=== PATIENT | female | born 1975 | race Caucasian/White ===

== ENCOUNTER 2018-11-05 08:42 | Day surgery (SDC) | payer OTHER ==
[~2018-11-05 08:42] MED LIST: PROPOFOL INJ 200 MG/20 ML VIAL IV ONE
[2018-11-05] MEDS ORDERED: ONDANSETRON HCL INJ/PF 4 MG/2 ML SDV ONE (09:21)
[2018-11-05 10:18] VITALS: BP 127/91
--- NOTE | 2018-11-05 13:18 | Operative Report ---
Operative Report DATE OF SURGERY: 11/05/18 Operative Report: The risks, benefits and alternatives of the procedure including the risks of bleeding, perforation requiring surgery have been explained to the patient in detail and informed consent is obtained. The patient is brought back to the endoscopy suite and placed in the left, lateral decubital position. Timeout was called. Propofol medication is administered. Rectal examination is done which did not reveal any masses, tears or fissures. An Olympus videoscope was introduced into the patient's rectum. The scope was then carefully advanced all the way to the cecum. The cecum was identified by the usual anatomical landmarks including the ileocecal valve as well as the appendiceal office. Photodocumentation is obtained. The scope was then sequentially pulled back via the rest segments of the colon including the ascending colon, hepatic flexure, transverse colon, splenic flexure, descending colon and finally into the rectosigmoid portions of the colon. Retroflexion maneuver is performed. The risks benefits and alternatives of the procedure explained to the patient in detail and informed consent is obtained.A GIF Olympus video scope was inserted into the patient's mouth and hypopharynx, the esophagus is identified intubated and insufflated, the scope was then advanced through the esophagus stomach and duodenum, retroflexion maneuver is done, the esophagus stomach and first and second portions of the duodenum examined. PREOPERATIVE DIAGNOSIS: Change of bowel habits, epigastric pain POSTOPERATIVE DIAGNOSIS: Right colon inflammation status post biopsy rule out collagenous colitis. Internal hemorrhoids. Gastritis status post biopsy rule out Helicobacter pylori OPERATION: Colonoscopy with biopsy. EGD with biopsy SURGEON: JACQUELYN HULL ANESTHESIA: LMAC TISSUE REMOVED OR ALTERED: As noted above. COMPLICATIONS: None. ESTIMATED BLOOD LOSS: None. INTRAOPERATIVE FINDINGS: As noted above. PROCEDURE: Patient tolerated the procedure well. No immediate postprocedure complications are noted. Patient discharged in good condition. Discharge date 11/05/2018. Discharge diet: Regular. Discharge activity: Regular. 2-3-week follow-up to discuss findings. Patient is instructed to call the office or proceed to the emergency room should there be any further problems or questions. I will wait on the pathology.
== END 2018-11-05 10:13 | disposition home or self-care (01) ==
LOC: END 08:42
PROVIDERS: ATTEND Internal Medicine Gastroenterology
DX: K29.50 Unspecified chronic gastritis without bleeding (principal); K52.9 Noninfective gastroenteritis and colitis, unspecified; K64.8 Other hemorrhoids; M06.9 Rheumatoid arthritis, unspecified; E07.9 Disorder of thyroid, unspecified; Z79.899 Other long term (current) drug therapy
CPT/HCPCS: 43239; 45380; 88342 ×2; 88305 ×2; J2405; J2704; 813

== ENCOUNTER 2018-12-03 08:01 | Inpatient (IN) | payer OTHER ==
[2018-11-30 12:23] LABS: APPEARANCE,URINE SLIGHTLY-CLOUDY; BILIRUBIN,URINE NEGATIVE (NEGATIVE); COLOR,URINE YELLOW; GLUCOSE, URINE NEGATIVE (NEGATIVE); KETONES,URINE NEGATIVE (NEGATIVE); LEUKOCYTE ESTERASE,URINE NEGATIVE (NEGATIVE); NITRITE,URINE NEGATIVE (NEGATIVE); PROTEIN,URINE NEGATIVE (NEGATIVE); URINE SPECIFIC GRAVITY 1.021; UROBILINOGEN,URINE NEGATIVE mg/dL (<2.0)
--- NOTE | 2018-11-30 12:26 | EKG REPORT ---
SEVERITY:- DEFECTIVE ECG - SINUS RHYTHM : Confirmed by: Robinson Moreno MD 30-Nov-2018 12:25:36
--- NOTE | 2018-11-30 12:35 | RADIOLOGY REPORT (SQ) ---
EXAM DESCRIPTION: CHEST PA/LATERAL COMPLETED DATE/TIME: 11/30/2018 12:28 pm REASON FOR STUDY: PRE-OP COMPARISON: None. EXAM PARAMETERS: NUMBER OF VIEWS: two views TECHNIQUE: Digital Frontal and Lateral radiographic views of the chest acquired. RADIATION DOSE: NA LIMITATIONS: none FINDINGS: LUNGS AND PLEURA: No opacities, masses or pneumothorax. No pleural effusion. MEDIASTINUM AND HILAR STRUCTURES: No masses or contour abnormalities. HEART AND VASCULAR STRUCTURES: Heart normal size. No evidence for failure. BONES: No acute findings. HARDWARE: None in the chest. OTHER: No other significant finding. IMPRESSION: NO SIGNIFICANT RADIOGRAPHIC FINDING IN THE CHEST. TECHNICAL DOCUMENTATION: JOB ID: [id number] [employer]- All Rights Reserved Reading location - IP/workstation name: [email or web address]
[2018-11-30 13:29] LABS: HEMATOCRIT 39.7 % (36.0-47.0); HEMOGLOBIN 13.8 g/dL (12.0-15.5); MEAN CORPUSCULAR HEMOGLOBIN 30.2 pg (27.0-33.4); MEAN CORPUSCULAR HGB CONC 34.7 g/dL (32.0-36.0); MEAN CORPUSCULAR VOLUME 87 fl (80-97); PLATELET COUNT 357 10^3/uL (150-450); RED BLOOD COUNT 4.57 10^6/uL (3.72-5.28); RED CELL DISTRIBUTION WIDTH 12.8 % (11.5-14.0); WHITE BLOOD COUNT 9.4 10^3/uL (4.0-10.5)
[2018-11-30 13:48] LABS: ANION GAP 10 (5-19); BLOOD UREA NITROGEN 12 mg/dL (7-20); CALCIUM 8.8 mg/dL (8.4-10.2); CARBON DIOXIDE 28 mmol/L (22-30); CHLORIDE 106 mmol/L (98-107); GLUCOSE 84 mg/dL (75-110); POTASSIUM 4.1 mmol/L (3.6-5.0); SODIUM 143.8 mmol/L (137-145)
[~2018-12-03 08:01] MED LIST changes: +BUPIVACAINE HCL 0.5%-EPI 1:200000 INJ/PF 30 ML VIAL ONE; +CEFAZOLIN SODIUM 2 GM in DEXTROSE 5%-WATER 100 ML IV PRN; -PROPOFOL INJ 200 MG/20 ML VIAL IV ONE
[2018-12-03] MEDS ORDERED: CEFAZOLIN 2 GM/D5W RTU 2 GM/50 ML RTUPB IV ONE (08:07)
[2018-12-03] MEDS ORDERED: SUCCINYLCHOLINE CHLORIDE INJ 200 MG/10 ML VIAL ONE (09:13)
[2018-12-03] MEDS ORDERED: DEXAMETHASONE SOD PHOSPHATE INJ 4 MG/1 ML VIAL ONE (09:13)
[2018-12-03] MEDS ORDERED: PHENYLEPHRINE HCL INJ/PF 10 MG/1 ML SDV ONE (09:13)
[2018-12-03] MEDS ORDERED: LIDOCAINE 2% INJ-PF (20 MG/ML) 10 ML AMPUL ONE (10:15)
[2018-12-03] MEDS ORDERED: MIDAZOLAM 2 MG/2 ML INJ ONE (10:16)
[2018-12-03] MEDS ORDERED: ACETAMINOPHEN 1,000 MG/100 ML RTUPB IV ONE (10:16)
[2018-12-03] MEDS ORDERED: ONDANSETRON HCL INJ/PF 4 MG/2 ML SDV ONE (10:16)
[2018-12-03] MEDS ORDERED: TRANEXAMIC ACID INJ/PF 1,000 MG/10 ML SDV IV ONE (10:16)
[2018-12-03] MEDS ORDERED: FENTANYL CITRATE INJ/PF 100 MCG/2 ML AMPUL ONE ×3 (10:16→12:28)
[2018-12-03] MEDS ORDERED: PROPOFOL INJ 200 MG/20 ML VIAL IV ONE (10:16)
[2018-12-03] MEDS ORDERED: EPHEDRINE SULFATE INJ 50 MG/1 ML AMPULE ONE (10:17)
[2018-12-03] MEDS ORDERED: PROMETHAZINE HCL INJ 25 MG/1 ML VIAL ONE (10:31)
[2018-12-03] MEDS ORDERED: HYDROMORPHONE HCL INJ/PF 2 MG/ML AMPULE ONE (10:32)
[2018-12-03] MEDS ORDERED: PROMETHAZINE HCL INJ 25 MG/1 ML VIAL IV PRN ×2 (10:47)
[2018-12-03] MEDS ORDERED: FENTANYL CITRATE INJ/PF 100 MCG/2 ML AMPUL IV PRN ×3 (10:47)
[2018-12-03] MEDS ORDERED: DIPHENHYDRAMINE HCL 50 MG/ML VIAL IV PRN (10:47)
[2018-12-03] MEDS ORDERED: MEPERIDINE HCL/PF INJ 25 MG/1 ML DISP.SYRIN IV PRN (10:47)
--- NOTE | 2018-12-03 11:46 | Operative Report ---
Operative Report DATE OF SURGERY: 12/03/18 PREOPERATIVE DIAGNOSIS: Left proximal humeral chondrosarcoma OPERATION: Intralesional resection left proximal humeral chondrosarcoma SURGEON: GHISLAINE FELIX ANESTHESIA: GA TISSUE REMOVED OR ALTERED: Tissue to pathology. Discussed with Dr. Tovar margins are not appropriate but tumor grade is important ESTIMATED BLOOD LOSS: 100 PROCEDURE: With the patient in a beachchair position on the operating table the left upper extremity and forequarter are prepped and draped in a sterile fashion. A delta level l pectoral approach to the shoulder is utilized. The shoulder is visualized. The subscapularis was taken down using an osteotomy through the lesser tuberosity and is retracted medially. The pectoralis is tagged and released from its insertion. The humerus was then externally rotated to bring the metaphyseal lesion into the operative field. It is entered using a 10 blade. The contents evacuated with a curette. The overhanging ridges are removed using a rondure. The wound is irrigated. The base of the tumor is then debrided using a TPS bur. The bed is then burned using electrocautery. The TPS is again used to remove all the charred cancellus bone. The wound is irrigated. Polymethylmethacrylate with tobramycin was mixed and used to fill the bone defect. The subscapularis tendon is repaired using interr upted 2-0 FiberWire suture. The pectoralis is repaired using 2-0 FiberWire suture. The wound is again irrigated and closed using Vicryl followed by nylon. A sterile compressive dressing and shoulder immobilizer applied and the patient's return to the PACU in satisfactory condition..
[2018-12-03] MEDS ORDERED: MORPHINE SULFATE 10 MG/ML INJ ONE (12:28)
[2018-12-03] MEDS: MORPHINE SULFATE 10 MG/ML INJ IV PRN ×4 (12:35→21:10)
[2018-12-03] MEDS ORDERED: RINGERS SOLUTION,LACTATED 1,000 ML IV PRN (12:57)
[2018-12-03] MEDS ORDERED: ONDANSETRON 4 MG TAB.RAPDIS SL PRN (13:00)
[2018-12-03] MEDS: OXYCODONE HCL IR 5 MG TABLET PO PRN ×2 (15:22→22:58)
[2018-12-03] MEDS: CEFAZOLIN SODIUM 2 GM in DEXTROSE 5%-WATER 100 ML IV SCH (17:03)
--- NOTE | 2018-12-03 18:23 | EKG REPORT ---
SEVERITY:- NORMAL ECG - SINUS RHYTHM : Confirmed by: Jenniffer Jessica 03-Dec-2018 18:22:21
[2018-12-04] MEDS: CEFAZOLIN SODIUM 2 GM in DEXTROSE 5%-WATER 100 ML IV SCH (02:45)
[2018-12-04] MEDS: MORPHINE SULFATE 10 MG/ML INJ IV PRN ×3 (02:46→11:55)
[2018-12-04] MEDS: OXYCODONE HCL IR 5 MG TABLET PO PRN ×4 (05:45→18:38)
[2018-12-04 06:44] LABS: HEMATOCRIT 35.3 % (36.0-47.0); MEAN CORPUSCULAR HEMOGLOBIN 29.9 pg (27.0-33.4); MEAN CORPUSCULAR VOLUME 88 fl (80-97); PLATELET COUNT 300 10^3/uL (150-450); RED BLOOD COUNT 4.01 10^6/uL (3.72-5.28); RED CELL DISTRIBUTION WIDTH 12.7 % (11.5-14.0); WHITE BLOOD COUNT 20.9 10^3/uL (4.0-10.5)
--- NOTE | 2018-12-04 07:05 | PDOC PROGRESS REPORT ---
Subjective Progress Note for:: 12/04/18 Reason For Visit: TUMOR REMOVAL FROM L HUMERUS BONE 43-year-old white female postop day 1 status post resection of a left proximal humeral chondrosarcoma. Patient complaining of pain overnight. Physical Exam Vital Signs: Temp Pulse Resp BP Pulse Ox 36.8 C 109 H 17 116/67 94 12/03/18 23:50 12/03/18 23:50 12/03/18 20:00 12/03/18 23:50 12/03/18 23:50 Intake & Output 12/03/18 12/04/18 12/05/18 06:59 06:59 06:59 Intake Total 2344 Output Total 400 Balance 1944 Weight 105.1 kg Physical Exam: Overweight middle-aged white female lying comfortably in bed. She is complaining of pain. General appearance: PRESENT: no acute distress, mild distress Head exam: PRESENT: normocephalic Respiratory exam: PRESENT: unlabored Cardiovascular exam: PRESENT: RRR Vascular exam: PRESENT: normal capillary refill GI/Abdominal exam: PRESENT: soft Rectal exam: PRESENT: deferred Extremities exam: PRESENT: other - Left shoulder dressing clean dry and intact. There is brisk capillary refill to each of the digits. Radial, ulnar, and median nerve function are intact. Neurological exam: PRESENT: alert, awake, oriented to person, oriented to place, oriented to time, oriented to situation. ABSENT: motor sensory deficit Psychiatric exam: PRESENT: appropriate affect, normal mood. ABSENT: homicidal ideation, suicidal ideation Skin exam: PRESENT: dry, intact, warm. ABSENT: cyanosis, rash Results Impressions: Chest X-Ray 11/30/18 12:20 IMPRESSION: NO SIGNIFICANT RADIOGRAPHIC FINDING IN THE CHEST. Status: Imported from PACS Assessment & Plan - Diagnosis (1) Chondrosarcoma left humerus Is this a current diagnosis for this admission?: Yes Plan: Pain medication has been increased. Shoulder sling has been ordered. Likewise ice to the shoulder on a as needed basis. Anticipate discharge home tomorrow with home health services. - Time Time Spent with patient: 15-24 minutes Anticipated discharge: Home with Homehealth Within: within 24 hours
[2018-12-04 07:09] LABS: ANION GAP 10 (5-19); BLOOD UREA NITROGEN 9 mg/dL (7-20); CALCIUM 9.1 mg/dL (8.4-10.2); CARBON DIOXIDE 25 mmol/L (22-30); CHLORIDE 106 mmol/L (98-107); GLUCOSE 131 mg/dL (75-110); POTASSIUM 4.2 mmol/L (3.6-5.0); SODIUM 141.2 mmol/L (137-145)
[2018-12-04] MEDS: OXYCODONE HCL SR 10 MG TABLET PO SCH ×2 (09:04→22:59)
[2018-12-05] MEDS: OXYCODONE HCL IR 5 MG TABLET PO PRN ×2 (00:15→04:30)
--- NOTE | 2018-12-05 07:16 | PDOC DISCHARGE SUMMARY ---
General - Admit/Disc Date/PCP Admission Date/Primary Care Provider: 12/03/18 08:01 ARIEL CASTRO, Discharge Date: 12/05/18 - Discharge Diagnosis (1) Chondrosarcoma left humerus Is this a current diagnosis for this admission?: Yes - Additional Information Resuscitation Status: Full Code Home Medications: Cholecalciferol (Vitamin D3) [Vitamin D3] 5,000 unit PO DAILY 12/03/18 Cyanocobalamin (Vitamin B-12) [Vitamin B-12 Inj 1000 Mcg/1 ml Vial] 1,000 mcg IM [id number] 12/03/18 Levothyroxine Sodium [Synthroid 0.025 mg Tablet] 0.25 mg PO Q6AM 12/03/18 Multivitamin [Tab-A-Basil (Multiple Vitamin) Tablet] 1 tab PO DAILY 12/03/18 Pantoprazole Sodium [Protonix] 40 mg PO DAILY 12/03/18 History of Present Illness History of Present Illness: KEYANNA FROST is a 43 year old female Patient is a 43-year-old white female who presented with greater than 1 year prodrome of left shoulder pain which was initially treated as a musculoskeletal injury. Ultimately an MRI scan was obtained and a proximal humeral metaphyseal lesion was identified. The nature of the lesion by imaging study suggested an active process of a cartilaginous neoplasm consistent with a low-grade chondrosarcoma. Hospital Course Hospital Course: The patient is admitted through the operating room where she underwent an intralesional resection of the left proximal humeral chondrosarcoma. She tolerated the procedure without complication was returned to floor in satisfactory condition. Pain control was initially problematic but the patient's oral analgesics were adjusted such that she is comfortable. Left shoulder wound remains clean dry and intact. Distal neurovascular examination to the left hand is intact. Physical Exam Vital Signs: Temp Pulse Resp BP Pulse Ox 36.8 C 97 16 127/75 H 95 12/04/18 23:19 12/04/18 23:19 12/04/18 23:19 12/04/18 23:19 12/04/18 23:19 Intake & Output 12/04/18 12/05/18 12/06/18 06:59 06:59 06:59 Intake Total 2344 2300 Output Total 400 900 Balance 1944 1400 Weight 105.1 kg 105.1 kg Physical Exam: Middle-aged white female lying in bed in minor distress. General appearance: PRESENT: no acute distress, mild distress, well-developed, well-nourished Head exam: PRESENT: normocephalic Respiratory exam: PRESENT: unlabored Cardiovascular exam: PRESENT: RRR Vascular exam: PRESENT: normal capillary refill GI/Abdominal exam: PRESENT: soft Rectal exam: PRESENT: deferred Extremities exam: PRESENT: other - Left upper extremity immobilized in a shoulder sling. Left shoulder dressing remains clean dry and intact. Neurovascular examination to the left hand is intact. Neurological exam: PRESENT: alert, awake, oriented to person, oriented to place, oriented to time, oriented to situation. ABSENT: motor sensory deficit Psychiatric exam: PRESENT: appropriate affect, normal mood. ABSENT: homicidal ideation, suicidal ideation Skin exam: PRESENT: dry, intact, warm. ABSENT: cyanosis, rash Results Laboratory Results: 12/04/18 05:50 12/04/18 05:50 12/04/18 12/04/18 05:50 05:50 WBC 20.9 H RBC 4.01 Hgb 12.0 Hct 35.3 L MCV 88 MCH 29.9 MCHC 34.0 RDW 12.7 Plt Count 300 Sodium 141.2 Potassium 4.2 Chloride 106 Carbon Dioxide 25 Anion Gap 10 BUN 9 Creatinine 0.72 Est GFR ( Amer) > 60 Est GFR (Non-Af Amer) > 60 Glucose 131 H Calcium 9.1 Impressions: Chest X-Ray 11/30/18 12:20 IMPRESSION: NO SIGNIFICANT RADIOGRAPHIC FINDING IN THE CHEST. Status: Imported from PACS Qualifiers - * PATIENT BEING DISCHARGED WITH ANY OF THE FOLLOWING DIAGNOSIS: No VTE patient discharged on overlapping Therapy?: No Reason(s) for not prescribing Overlap Therapy:: Not indicated Plan Discharge Plan: Patient to be discharged home on oral analgesics. Follow-up with Dr. Bright and [facility] for surgery in 2 weeks for staple removal. Time Spent: Less than 30 Minutes
[2018-12-05 08:30] VITALS: BP 112/88
[2018-12-05] MEDS: OXYCODONE HCL SR 10 MG TABLET PO SCH (09:06)
== END 2018-12-05 10:25 | disposition home health service (06) | DRG 479 ==
LOC: INOR 08:01 → EDSTATUS 11:15 → 4W 14:02
PROVIDERS: ADMIT Orthopaedic Surgery; ATTEND Orthopaedic Surgery
PROC: 0PUD0JZ Supplement Left Humeral Head with Synthetic Substitute, Open Approach (ICD-10-PCS; 2018-12-03)
PROC: 0PBD0ZX Excision of Left Humeral Head, Open Approach, Diagnostic (ICD-10-PCS; principal; 2018-12-03 10:00)
PROC: 3E02340 Introduction of Influenza Vaccine into Muscle, Percutaneous Approach (ICD-10-PCS; 2018-12-05)
DX: C40.02 Malignant neoplasm of scapula and long bones of left upper limb (principal); E03.9 Hypothyroidism, unspecified; K21.9 Gastro-esophageal reflux disease without esophagitis; M06.9 Rheumatoid arthritis, unspecified; Z23 Encounter for immunization
CPT/HCPCS: 36415; 400; 71046; 80048; 81001; 85027; 88305; 88311; 90471; 90686; 93005; 93010; C1713; G0008; J0131; J0330; J0690; J1100; J1170; J2250; J2270; J2370; J2405; J2550; J2704; J3010; J3490; J7120

== ENCOUNTER → 2020-06-12 | Outpatient (CLI) | payer OTHER | LOC: OD 08:12 | PROVIDERS: ATTEND Otolaryngology | DX: J30.9 Allergic rhinitis, unspecified (principal) | CPT/HCPCS: 36415; 82785; 86003 ==

== ENCOUNTER → 2020-07-02 | Outpatient (CLI) | payer OTHER ==
--- NOTE | 2020-07-02 14:23 | RADIOLOGY REPORT (SQ) ---
EXAM DESCRIPTION: CT CHEST WITH IMAGES COMPLETED DATE/TIME: 07/02/2020 1:53 pm REASON FOR STUDY: R91.8 OTHER NONSPECIFIC ABNORMAL FINDING OF LUNG FIELD R91.8 OTHER NONSPECIFIC AB NORMAL FINDING OF LUNG FIELD COMPARISON: None. TECHNIQUE: CT scan of the chest performed using helical scanning technique with dynamic intravenous contrast injection. Images reviewed with lung, soft tissue and bone windows. Reconstructed coronal and sagittal MPR and MIP images reviewed. All images stored on PACS. All CT scanners at this facility use dose modulation, iterative reconstruction, and/or weight based d osing when appropriate to reduce radiation dose to as low as reasonably achievable (ALARA). [facility]: Dose Right [facility]: CareDose [facility]: Dose Right [facility]: Teradose 4D [facility]: MYOMO CONTRAST TYPE AND DOSE: contrast/concentration: Isovue 350.00 mmol/ml; Total Contrast Delivered: 80. 0 ml; Total Saline Delivered: 50.0 ml RENAL FUNCTION: Not indicated. RADIATION DOSE: CT Rad equipment meets quality standard of care and radiation dose reduction techniq ues were employed. CTDIvol: 16.4 mGy. DLP: 688 mGy-cm. . LIMITATIONS: None. FINDINGS: LUNGS AND PLEURA: Cavitary pleural-based nodule superior segment right lower lobe 2.2 x 1. 7 cm. 1.6 x 0.8 cm pleural-based nodule medial right lower lobe image 64. Several much smaller foca l areas of pleural thickening posterior lower lobes. HILAR AND MEDIASTINAL STRUCTURES: No identified masses or abnormal nodes. HEART AND VASCULAR STRUCTURES: No aneurysm or dissection. No central pulmonary emboli. No pericardi al effusion. HARDWARE: None in the chest. UPPER ABDOMEN: No significant findings. Limited exam. THYROID AND OTHER SOFT TISSUES: No masses. No adenopathy. BONES: No significant finding. OTHER: No other significant finding. IMPRESSION: Pulmonary nodules as described above. Correlation with PET-CT is recommended. TECHNICAL DOCUMENTATION: JOB ID: [id number] Quality ID # [id number]: Final reports with documentation of one or more dose reduction techniques (e.g., Au tomated exposure control, adjustment of the mA and/or kV according to patient size, use of iterative reconstruction technique) 2010 [employer]- All Rights Reserved Reading location - IP/workstation name: [email or web address]
== END ==
LOC: RAD 13:30
PROVIDERS: ATTEND Orthopaedic Surgery
DX: R91.8 Other nonspecific abnormal finding of lung field (principal)
CPT/HCPCS: 71260

== ENCOUNTER → 2020-07-14 | Outpatient (CLI) | payer OTHER ==
--- NOTE | 2020-07-14 14:56 | RADIOLOGY REPORT (SQ) ---
EXAM DESCRIPTION: PET CT SKULL/THIGH IMAGES COMPLETED DATE/TIME: 07/14/2020 1:18 pm REASON FOR STUDY: R91.8 OTHER NONSPECIFIC ABNORMAL FINDING OF LUNG FIELD R91.8 OTHER NONSPECIFIC AB NORMAL FINDING OF LUNG FIELD COMPARISON: None. RADIONUCLIDE AND DOSE: 11.6 mCi F18 FDG The route of agent administration: Intravenous FASTING BLOOD SUGAR: 81 mg/dl CONTRAST TYPE AND DOSE: No CT contrast given. TECHNIQUE: Blood glucose level was verified. Above dose of FDG was injected intravenously. 2-D seg mented attenuation correction images were obtained from the base of the skull to the midthighs. Nonc ontrast CT images were obtained for attenuation correction and fusion with emission images. CT image s were performed without oral or intravenous contrast and are not sensitive for parenchymal lesions. A series of overlapping emission PET images were obtained. Images reviewed and manipulated at [facility] work station by the radiologist. Images stored on PACS. LIMITATIONS: None. FINDINGS: HEAD AND NECK: No areas of abnormal metabolic activity in the soft tissues of the head and neck. CHEST: No significant uptake in either of the 2 recently described pulmonary nodules. Cavitary nodul e 1.6 SUV. ABDOMEN AND PELVIS: No areas of abnormal metabolic activity in the abdomen or pelvis. Expected physi ologic activity is present in the genitourinary system and bowel. PROXIMAL LOWER EXTREMITIES: No areas of abnormal metabolic activity in the soft tissues of the lower extremities. BONES: No abnormal metabolic activity in the visualized skeleton. ADDITIONAL CT FINDINGS: Non hypermetabolic mixed sclerotic and lytic lesion in the left femoral neck. OTHER: Blood pool 1.7 SUV. Liver background 2.6 SUV. IMPRESSION: Non hypermetabolic pulmonary nodules. COMMENT: Given small size of the solid component of the cavitary nodule, six-month noncontrast chest CT follow-up is recommended. TECHNICAL DOCUMENTATION: JOB ID: [id number] 2010 [employer]- All Rights Reserved Reading location - IP/workstation name: [email or web address]
== END ==
LOC: RAD 10:02
PROVIDERS: ATTEND Orthopaedic Surgery
DX: R91.8 Other nonspecific abnormal finding of lung field (principal)
CPT/HCPCS: 78815; A9552

== ENCOUNTER → 2020-10-05 | Outpatient (CLI) | payer OTHER ==
--- NOTE | 2020-10-05 12:17 | RADIOLOGY REPORT (SQ) ---
EXAM DESCRIPTION: CT CHEST WITH IMAGES COMPLETED DATE/TIME: 10/05/2020 10:36 am REASON FOR STUDY: OTHER NONSPECIFIC ABN FINDING OF LUNG FIELD R91.8 OTHER NONSPECIFIC ABNORMAL FIND ING OF LUNG FIELD COMPARISON: PET from 07/14/[address] of the chest with contrast from 07/29/2020. TECHNIQUE: CT scan of the chest performed using helical scanning technique with dynamic intravenous contrast injection. Images reviewed with lung, soft tissue and bone windows. Reconstructed coronal and sagittal MPR and MIP images reviewed. All images stored on PACS. All CT scanners at this facility use dose modulation, iterative reconstruction, and/or weight based d osing when appropriate to reduce radiation dose to as low as reasonably achievable (ALARA). [facility]: Dose Right [facility]: CareDose [facility]: Dose Right [facility]: Teradose 4D [facility]: [employer] CONTRAST TYPE AND DOSE: Contrast/concentration: Isovue 350.00 mmol/ml; Total Contrast Delivered: 80. 0 ml; Total Saline Delivered: 55.0 ml RENAL FUNCTION: GFR > 60. RADIATION DOSE: CT Rad equipment meets quality standard of care and radiation dose reduction techniq ues were employed. CTDIvol: 15.2 mGy. DLP: 729 mGy-cm. LIMITATIONS: None. FINDINGS: LUNGS AND PLEURA: The trachea main bronchi are patent. The previous cavitary nodule in th e superior segment of the right lower lobe (image 60 of series 4) has decreased in size and it measur es 5 mm compared to 2.2 x 1.7 cm on the prior CT. The subpleural nodular opacities in the dependent portions of the lower lobes are unchanged. There is no new or enlarging pulmonary nodule. There is no bronchiectasis or bronchial wall thickening. There is no consolidation, ground-glass opacificatio n, pleural effusion or pneumothorax. HILAR AND MEDIASTINAL STRUCTURES: No adenopathy or mass. HEART AND VASCULAR STRUCTURES: No aneurysm or dissection of the thoracic aorta. No cardiomegaly or p ericardial effusion. HARDWARE: Cholecystectomy clips. UPPER ABDOMEN: No acute abnormality. THYROID AND OTHER SOFT TISSUES: No adenopathy or mass. BONES: Probable bone graft in the proximal left humerus (image 7 of series 2). OTHER: No other finding. IMPRESSION: The previous cavitary nodule in the superior segment of the right lower lobe (image 60 o f series 4) has decreased in size and it measures 5 mm compared to 2.2 x 1.7 cm on the prior CT. The re is no new or enlarging pulmonary nodule. TECHNICAL DOCUMENTATION: JOB ID: [id number] Quality ID # [id number]: Final reports with documentation of one or more dose reduction techniques (e.g., Au tomated exposure control, adjustment of the mA and/or kV according to patient size, use of iterative reconstruction technique) 2010 [employer]- All Rights Reserved Reading location - IP/workstation name: [email or web address]
== END ==
LOC: RAD 10:05
PROVIDERS: ATTEND Orthopaedic Surgery
DX: R91.8 Other nonspecific abnormal finding of lung field (principal)
CPT/HCPCS: 71260